=== PATIENT | female | born 1965 ===

== ENCOUNTER 2018-08-01 09:17 | Day surgery (SDC) | payer OTHER ==
[~2018-08-01 09:17] MED LIST: INTESTINEX1 CA1 PO; OXYC1TAB9 PO
== END 2018-08-01 14:38 | disposition home or self-care (01) ==
LOC: AMB-ENDOS 09:17
DX: K64.8 Other hemorrhoids (principal); K57.30 Diverticulosis of large intestine without perforation or abscess without bleeding